=== PATIENT | male | born 1980 | race Caucasian/White ===

== ENCOUNTER 2020-04-13 11:26 | Outpatient (REF) | payer BC, SELFPAY ==
[2020-04-13 20:35] LABS: Calculated LDL 141 mg/dL (<100); Cholesterol 206 mg/dL (<200); Glucose 91 mg/dL (74-106); HDL Cholesterol 50 mg/dL (40-60); Triglyceride 75 mg/dL (<150)
== END 2020-04-13 11:46 ==
LOC: NCHCN 11:26
PROVIDERS: PCP Nurse Practitioner Family; Visit Provider Nurse Practitioner Family
DX: Z77.011 Contact with and (suspected) exposure to lead (principal); Z00.00 Encounter for general adult medical examination without abnormal findings; Z13.1 Encounter for screening for diabetes mellitus; Z13.220 Encounter for screening for lipoid disorders
CPT/HCPCS: 80061; 82947; 83655

== ENCOUNTER 2020-04-16 11:35 | Outpatient (CLI) | payer BC, SELFPAY ==
--- NOTE | 2020-04-13 10:44 | DI.RAD_ITS ---
EXAM: XR CHEST 2V PA LATERAL CLINICAL HISTORY: CHEST PAIN LT R07.89 TECHNIQUE: 2D digital imaging was performed. COMPARISON: No exams were available for comparison FINDINGS: MEDIASTINUM: Normal. HEART: Normal. PULMONARY VASCULATURE: Normal. LUNGS: Clear. PLEURAL SPACE: No pleural effusion or pneumothorax. BONE:Normal. OTHER FINDINGS:Normal. IMPRESSION: No acute pulmonary findings. DATA REPOSITORY: RADIATION DOSE DELIVERED:
== END 2020-04-16 11:55 ==
PROVIDERS: PCP Nurse Practitioner Family; Visit Provider Nurse Practitioner Family
DX: R07.89 Other chest pain (principal)
CPT/HCPCS: 71046

== ENCOUNTER 2020-05-07 00:28 | Outpatient (CLI) | payer BC, SELFPAY ==
--- NOTE | 2020-05-07 | DI.US_ITS ---
APPROVED REPORT EXAM: Comprehensive 2D, Doppler, and color-flow Echocardiogram Patient Location: Out-Patient Dairy Scientist: Ngoc Mahoney RDCS (AE) Indications: MVP Other Information Study Quality: Good Conclusion Left ventricular chamber size and wall thickness. Estimated ejection fraction is 60 to 65%. There a re no segmental wall motion abnormalities. Normal diastolic function There is no chamber enlargement There are no structural valvular abnormalities. No mitral valve prolapse is seen There is trace physiologic mitral and tricuspid regurgitation Wall motion Left Ventricle The left ventricle is normal size. The left ventricular systolic function is normal. The left ventric ular ejection fraction is within the normal range. There is normal left ventricular wall thickness. T here is normal LV segmental wall motion. The left ventricular diastolic function is normal. There is no ventricular septal defect visualized. LVEF is 60-65%. Right Ventricle The right ventricle is normal size. The right ventricular systolic function is normal. The RVSP is 15 .6mmHg. Atria The left atrium size is normal. The right atrium size is normal. The interatrial septum is intact wit h no evidence for an atrial septal defect. Aortic Valve The aortic valve is normal in structure. Aortic valve is trileaflet. There is no aortic valvular sten osis. No aortic regurgitation is present. Mitral Valve The mitral valve is normal in structure. No evidence of mitral valve stenosis. Trace mitral regurgita tion. There is no evidence of mitral valve prolapse. Tricuspid Valve The tricuspid valve is normal in structure. There is no tricuspid valve stenosis. Trace tricuspid reg urgitation. Pulmonic Valve The pulmonary valve is normal in structure. There is no pulmonic valvular stenosis. There is no pulmo janelle valvular regurgitation. Great Vessels The aortic root is normal in size. The ascending aorta is normal in size. IVC is normal in size and c ollapses >50% with inspiration. Pericardium There is no pericardial effusion. There is no pleural effusion. 2D Dimensions IVSD d PLAX 0.92 cm M: 0.6-1.2 LV Vol A2C d MOD 126.0 mL LVPW d PLAX 0.93 cm M: 0.6 - 1.2 LV Vol A4C d MOD 114.0 mL LVID d PLAX 4.67 cm M: 4.2 - 5.8 LA vol/ BSA A2C s A-L 31.1 mL/m2 LVDs 2.95 cm M: 2.5 - 4.0 LA vol/ BSA A4C s A-L 27.1 mL/m2 Ao Root d 3.06 cm M: 3.1 - 3.7 LA Vol/ BSA Biplane s A-L 29.2 mL/m2 RA Area A4C 14.30 cm2 LA Area A4C s MOD 18.33 cm2 RA Vol/ BSA A4C s A-L 19.8 mL/m2 LA Area A2C s MOD 19.54 cm2 Ao Asc Diam d 3.14 cm M: 2.6 - 3.4 LV EF A4C MOD 64.1 % LV EF Teichholz 65.5 % LV EF A2C MOD 63.1 % LVEF (Frazier's) 62.98 % M: 52 - 72 LV EF Biplane MOD 63.0 % LV Volume 90.92 mL M: 62 - 150 SV 75.68 mL LV Volume Index 46.86 mL/m2 M: 34 - 74 SV Index 38.85 mL/m2 LV Vol Biplane MOD 120.2 mL FS 35.90 % M-Mode TAPSE 2.13 cm (M/F) >1.7 LV Diastology MV E' medial 0.090 (>0.07 m/s) E/A Ratio 1.6 LV E/e MED 8.05 (<14) MV E Vmax 0.73 (0.4-1.3 m/s) MV E' lateral 0.117 (>0.1 m/s) MV A Vmax 0.45 (0.4-1.3 m/s) LV E/e LAT 6.20 (<14) MV E/A Ratio 1.51 MV E/E' medial 8.07 MV E/E' lateral 6.22 Aortic Valve LVOT Area 3.40 cm2 AoV Area Vmax 3.14 cm2 LVOT Vmax 1.11 m/s AoV Area/ BSA (Vmax) 1.61 cm2/m2 LVOT Mean Shashi. 0.67 m/s ARNAUD Mean Shashi. 2.63 cm2 LVOT Peak Grad 5.0 mmHg ARNAUD Mean Shashi. Index 1.35 cm2/m2 LVOT Mean Grad 2.2 mmHg LVOT VTI 0.256 m LVOT Diam s 2.05 cm AoV Vmax 1.21 m/s Velocity Ratio 0.91 AoV Mean Shashi. 0.87 m/s AoV Peak Grad 5.8 mmHg LVOT SV 87.05 mL AoV Mean Grad 3.3 mmHg AoV VTI 0.273 m AoV Area VTI 3.19 cm2 AoV Area/ BSA (VTI) 1.64 cm/m2 Mitral Valve MV DT 174 (160-240 msec) MV PHT 50 msec MV Area PHT 4.36 cm2 Pulmonary Valve PV Vmax 0.94 (0.5-1.5 m/s) RVOT Peak Gr. 1.18 mmHg PV Peak Grad 3.5 mmHg RVOT Mean Gr. 0.75 mmHg PV Mean Grad 2.0 mmHg RVOT VTI 0.133 m PV VTI 0.197 m RVOT Vmax 0.54 m/s Tricuspid Valve TR Peak Grad 12.5 mmHg TR Vmax 1.77 m/s RA Pressure 3.00 mmHg RVSP (TR) 15.6 mmHg
== END 2020-05-07 00:48 ==
PROVIDERS: PCP Nurse Practitioner Family; Visit Provider Nurse Practitioner Family
DX: I34.1 Nonrheumatic mitral (valve) prolapse (principal); I36.1 Nonrheumatic tricuspid (valve) insufficiency; R07.89 Other chest pain
CPT/HCPCS: 93306

== ENCOUNTER 2020-05-22 15:13 | Outpatient (REF) | payer BC, SELFPAY ==
--- NOTE | 2020-05-22 13:45 | SKI_PTH ---
PATIENT: Kirk Gunter LOC: [facility] U#:[id number] AGE/SX: 39/M ROOM: RE05/22/[address]: Christie Fajardo : 1980 BED: DIS: 05/22/2020 SPEC #: [id number] RECD: 05/23/20 12:42 STATUS: KIRSTIE ADHIKARI #: [id number] ADAN: 05/22/20 13:[address]: Christie Fajardo DEPT: Surgical Specimen RECD BY: Corina Izaguirre Tissues: 1 - SKIN BIOPSY(SHAVE/PUNCH) Procedures: SKIN LEVEL 4 Comments: [id number]
== END 2020-05-22 15:33 ==
LOC: NCHCN 15:13
PROVIDERS: PCP Nurse Practitioner Family; Visit Provider Nurse Practitioner Family
DX: D23.5 Other benign neoplasm of skin of trunk (principal)
CPT/HCPCS: 88305

== ENCOUNTER 2020-07-31 12:29 | Outpatient (REF) | payer BC, SELFPAY ==
[2020-08-03 13:41] LABS: Patient Race White; SARS-CoV-2 RNA Undetected (Undetected); SARS-CoV-2 Specimen Source Nasopharynx
== END 2020-07-31 12:49 ==
LOC: NCHCN 12:29
PROVIDERS: PCP Nurse Practitioner Family; Visit Provider Nurse Practitioner Family
DX: Z11.59 Encounter for screening for other viral diseases (principal)
CPT/HCPCS: U0003

== ENCOUNTER 2021-07-18 08:19 | Outpatient (REF) | payer BC, SELFPAY ==
[2021-07-19 12:12] LABS: COVID-19 RT-PCR UVMMC Result Negative (Negative)
== END 2021-07-18 08:20 | disposition home or self-care (01) ==
LOC: NCHCN 08:19
PROVIDERS: PCP Nurse Practitioner Family; Visit Provider Physician Assistant Medical
DX: Z20.822 Contact with and (suspected) exposure to COVID-19 (principal)
CPT/HCPCS: U0003

== ENCOUNTER 2021-11-19 19:30 | Emergency (ER) | payer BC, SELFPAY ==
[2021-11-19 19:36] VITALS: BP 148/109; PULSE 85; RESP 16; TEMP 36.4; O2SAT 97
[2021-11-19] MEDS: Simethicone/Sod Bicarb/Cit Ac, 4 gram PACKET 1 PACKET PO (19:51)
[2021-11-19 19:58] VITALS: BP 132/93; PULSE 84; O2SAT 98
[2021-11-19 20:09] LABS: Source Nasopharynx
[2021-11-19] MEDS: Glucagon 1 MG VIAL IVP (20:09)
--- NOTE | 2021-11-19 20:10 | ED.GENADUL_ITS ---
Discharge Plan Disposition Patient Disposition: HOME Condition: Stable Discharge Details Chief Complaint: ThroatFB Clinical Impression: Impacted foreign body in esophagus Primary Care Provider: Christie Fajardo ED Provider: Jono Romo Home Meds and New Rx's Prescriptions: No Action No Known Home Meds RF: 0 Discharge Instructions Additional Instructions: drinking carbonated beverages can help when this happens follow up with your primary care provider within 1-2 weeks if you feel more ill, have worsening pain or can't tolerate liquids return to the emergency department Medical Decision Making 41 yo male who denies chronic medical problems comes in with feeling like chicken is stuck in his throat. He states he was eating previously frozen boneless chicken that was tough to chew, swallowed it and felt it get lodged in his throat, points to negrete apple area when he is asked where it feels stuck. Denies dyspnea, and has never had this before. HE also notes a week ago he tested positive for covid, is fully vaccinated and was tested for work protocol and never had symptoms. He is unable to swallow liquids without spitting it back up, will try effervescent and also glucagon and reasess. pt feeling better and is now able to drink liquids, remains covid positive but stable vitals. Given he can now tolerate po do not feel emergent endoscopy indicated. He is stable for discharge and advised to follow up with pcp and return precautions given Differential Diagnosis Differential Diagnosis: food impaction, gerd Lab Data Lab results reviewed: Yes I reviewed the patient's lab results. HPI General Mode of arrival: ambulatory . Date/Time Provider Initiated Documentation: 11/19/21 19:54 . Limitations to Documentation: no limitations . Information obtained by: patient . History of Present Illness 41 year old M presents to the emergency department with the chief complaint of feels chicken stuck in his throat, described as moderate, Patient started experiencing this hour(s) (3) and it has been constant. No relieving factors improve symptom(s), No exacerbating factors reported . Patient notes no other symptoms.. Patient did receive the following treatments prior to arrival, none Related Data Home Medications Medication Instructions Recorded Confirmed Unknown [No Known Home Meds] 11/19/21 11/19/21 Allergies Allergy/AdvReac Type Severity Reaction Status Date / Time No Known Allergies Allergy Unverified 11/19/21 19:40 General Stated Complaint: ThroatFB PANCHITO: 2 Review of Systems All systems reviewed & are unremarkable except as noted in HPI and below Constitutional Constitutional: Denies chills, Denies fever(s) and Denies weakness Cardiovascular Cardiovascular: Denies chest pain and Denies dyspnea Respiratory Respiratory: Denies cough and Denies dyspnea Gastrointestinal Gastrointestinal: Denies abdominal pain, Denies nausea and Denies vomiting Musculoskeletal Musculoskeletal: Denies joint swelling Neurologic Neurologic: Denies weakness PFSH All Active Problems (Updated 11/19/21 @ 21:35 by Jono Romo MD) Impacted foreign body in esophagus (Acute) Medical History (Updated 11/19/21 @ 21:35 by Jono Romo MD) COVID-19 Social History Smoking/Tobacco Use Status: Former Tobacco Use Smoking risk assessment performed?: Yes Alcohol Intake: current Alcohol Intake frequency: holidays/special occasions only Drug use: Occasionally Substance use type: marijuana Do you feel safe at home: Yes Do you feel safe in your relationship?: Yes Exam Const General: well developed Orientation: alert HENMT Head: normal to inspection Ears: external ears normal General nose exam: external nose normal Mouth: moist mucous membranes Eyes General: appearance normal, both eyes and all related structures Neck Neck: normal visual inspection Resp Effort & Inspection: normal respiratory effort and able to speak in complete sentences Cardio Rate: regular rate Skin General skin exam: no rashes or lesions noted Neuro General: patient alert and patient oriented x3 Extrem General: normal to inspection Psych Mental Status: mental status grossly normal Course Vital Signs Vital signs: Vital Signs Temperature 36.4 C L 11/19/21 19:36 Pulse 85 11/19/21 19:36 Respiratory Rate 16 11/19/21 19:36 Blood Pressure 148/109 H 11/19/21 19:36 Pulse Oximetry 97 11/19/21 19:36 Temperature 36.4 C L 11/19/21 19:36 Pulse 84 11/19/21 19:58 Respiratory Rate 16 11/19/21 19:36 Respiratory Effort Non-Labored 11/19/21 19:59 Respiratory Pattern Normal 11/19/21 19:59 Blood Pressure 132/93 H 11/19/21 19:58 Pulse Oximetry 98 11/19/21 19:58 Pain Level 6 11/19/21 19:36 Lab/Test Results Lab/Test Results: Laboratory Tests Range/Units 11/19/21 20:04 COVID-19 Source Nasopharynx
[2021-11-19 21:02] LABS: Influenza A PCR Negative (Negative); Influenza B PCR Negative (Negative); RSV PCR Negative (Negative)
[2021-11-19 21:20] LABS: COVID-19 PCR POSITIVE (Negative)
[2021-11-19 21:40] VITALS: BP 135/99; PULSE 84; RESP 18; O2SAT 98
[2021-11-19] MEDS: Ondansetron 4 MG/2 ML VIAL IVP (22:02)
== END 2021-11-19 23:23 | disposition home or self-care (01) ==
PROVIDERS: Emergency Provider Emergency Medicine; PCP Nurse Practitioner Family
DX: T18.128A Food in esophagus causing other injury, initial encounter (principal); X58.XXXA Exposure to other specified factors, initial encounter; U07.1 COVID-19
CPT/HCPCS: 87637; 96374; 96375; 99284; 99283; J1610; J2405

== ENCOUNTER 2021-12-03 17:23 | Outpatient (REF) | payer BC, SELFPAY ==
[2021-12-03 14:26] LABS: Calculated LDL 134 mg/dL (<100); Cholesterol 202 mg/dL (<200); Glucose 90 mg/dL (74-106); HDL Cholesterol 54 mg/dL (40-60); Triglyceride 71 mg/dL (<150)
== END 2021-12-03 17:24 | disposition home or self-care (01) ==
LOC: NCHCN 17:23
PROVIDERS: PCP Nurse Practitioner Family; Visit Provider Nurse Practitioner Family
DX: Z00.00 Encounter for general adult medical examination without abnormal findings (principal)
CPT/HCPCS: 80061; 82947

== ENCOUNTER 2021-12-10 01:04 | Outpatient (CLI) | payer BC, SELFPAY ==
--- NOTE | 2021-12-10 10:15 | DI.RAD_ITS ---
Exam(s) XR CHEST 2V PA LATERAL EXAM: XR CHEST 2V PA LATERAL CLINICAL HISTORY: H/O COVID-19 INFECTION, U07.1, 1-MO AGO, NO NEW SYMPTOMS TECHNIQUE: 2D digital imaging was performed of the chest. Three images were obtained. PA and later al views were obtained. COMPARISON: CR XR CHEST 2V PA LATERAL from 04/13/2020 FINDINGS: MEDIASTINUM: Normal. HEART: Normal. PULMONARY VASCULATURE: Normal. LUNGS: Clear. PLEURAL SPACE: No pleural effusion or pneumothorax. BONE:Within normal limits for the patient's age. OTHER FINDINGS:Normal. IMPRESSION: No acute pulmonary findings. DATA REPOSITORY: RADIATION DOSE DELIVERED:
== END 2021-12-10 01:24 ==
PROVIDERS: PCP Nurse Practitioner Family; Visit Provider Nurse Practitioner Family
DX: Z86.16 Personal history of COVID-19 (principal)
CPT/HCPCS: 71046

== ENCOUNTER 2025-02-24 16:31 | Emergency (ER) | payer OTHER, SELFPAY ==
[2025-02-24] VITALS (17 sets, daily range): BP systolic 103–158; BP diastolic 78–101; PULSE 58–72; RESP 10–19; TEMP 36.7; O2SAT 98–100
--- NOTE | 2025-02-24 16:30 | RT.EKG_ITS ---
APPROVED REPORT Exam: Resting ECG Reason for Exam: ches pain Patient Location: E HR:66 bpm ECG Measurements Heart Rate 66 AXIS NV 164 P 50 QRSd 84 QRS 50 QT 386 T 57 QTc 406 Conclusion Sinus rhythm...normal P axis, V-rate 60- 99 Probable left atrial enlargement...P >50mS, <-0.10mV V1 Sinus Rhythm. No prior. WD
--- NOTE | 2025-02-24 17:12 | W.ED.GENAD ---
Discharge Plan Disposition Patient Disposition: Home Condition: Stable Discharge Details Clinical Impression: Chest pain of uncertain etiology Primary Care Provider: Xiomara,Local ED Provider: Dmitry Chambers Home Meds and New Rx's Prescriptions: No Action multivitamin Tablet 1 tab PO DAILY Discharge Instructions Instructions: Chest Pain, Adult ED Additional Instructions: You were seen in the emergency department for your intermittent chest pain for 6 to 7 days, your cardiac workup is negative, your EKG shows no acute abnormality, I ruled out a blood clot in the lungs and there is no abnormality seen on your chest x-ray, no evidence of infection seen on your blood work. 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 HPI Narrative: 44 year-old male presents to ED today by EMS with a chief complaint of intermittent chest pain for the past 6-7 days, recently got back from vacation and was exerting himself a lot. Quality described as generalized chest heaviness, no radiation to shortness of breath, diaphoresis, syncope, nausea/vomiting, visual changes, fever, cough. Severity is described as moderate. Palliating factors include nothing specific attempted. Provoking factors include nothing specific. Events leading up to the incident/Associated Symptoms: Patient denies history of AK. Patient not anticoagulated. Related Data Home Medications ?Medication ?Instructions ?Recorded ?Confirmed multivitamin 1 tab PO DAILY 12/17/21 02/24/25 Allergies Allergy/AdvReac Type Severity Reaction Status Date / Time No Known Allergies Allergy Unverified 02/24/25 16:43 General Stated Complaint: Chest Pain PANCHITO: 2 Review of Systems All systems reviewed & are unremarkable except as noted in HPI and below Exam Narrative Exam Narrative: GENERAL APPEARANCE: Well-nourished, non-toxic, awake and alert, atraumatic, no acute distress. SKIN: Warm, pink, dry, intact, without rashes/lesions/ulcerations. HEAD: Normocephalic, atraumatic, normal hair distribution for gender/age. EYES: Normal conjunctiva, no exudates on lids/lashes. ENT: Nares patent, no circumoral cyanosis, no facial swelling NECK: Supple, trachea midline, painless cervical ROM. LUNGS/CHEST: Lungs CTA bilaterally, non-labored respirations, normal A/P diameter, symmetrical expansion, no chest wall deformity HEART (CV/PV): Regular rate and rhythm without murmur, no peripheral edema, no JVD. ABDOMEN: Soft, non-distended, no guarding. MSK: Normal ROM, no swelling/deformity to bilateral UEs or LEs, moving all extremities without weakness, no cyanosis, spine midline without tenderness, normal curvature. NEURO: Mental Status AAOx4 - alert to person, place, time, events No facial droop, no forehead involvement. Motor: No focal weakness - strength 5/5 in bilateral UEs and LEs, proximal and distal, symmetric. Sensory: sensation intact to light touch globally. Gait normal: patient ambulated without ataxia into ED room. PSYCH: euthymic, cooperative, pleasant, appropriate speech Course Vital Signs Vital signs: Vital Signs Temperature 36.7 C 02/24/25 16:32 Pulse 72 02/24/25 16:32 Respiratory Rate 10 L 02/24/25 16:32 Blood Pressure 133/95 H 02/24/25 16:32 Pulse Oximetry 100 02/24/25 16:32 Temperature 36.7 C 02/24/25 16:32 Temperature Source Oral 02/24/25 16:32 Pulse 72 02/24/25 16:32 Respiratory Rate 10 L 02/24/25 16:32 Blood Pressure 133/95 H 02/24/25 16:32 Blood Pressure Position Sitting 02/24/25 16:32 Pulse Oximetry 100 02/24/25 16:32 Oxygen Delivery Method Room Air 02/24/25 16:32 Oxygen Flow Rate 0 02/24/25 16:32 Pain Level 0 02/24/25 16:32 Medical Decision Making This dictation utilizes [id number] dictation software and may contain unedited grammatical errors. 44 year-old male presents to ED today by EMS with a chief complaint of intermittent chest pain for the past 6-7 days, recently got back from vacation and was exerting himself a lot. Quality described as generalized chest heaviness, no radiation to shortness of breath, diaphoresis, syncope, nausea/vomiting, visual changes, fever, cough. Severity is described as moderate. Palliating factors include nothing specific attempted. Provoking factors include nothing specific. Events leading up to the incident/Associated Symptoms: Patient denies history of AK. Patients' medical history: Atrial fibrillation, Lyme disease, mitral valve prolapse, psoriasis. Family and social history: Denies heavy EtOH use, denies illicit substance use. Pertinent exam findings / vital signs include benign cardiopulmonary exam, no tenderness to ribs, benign abdomen, neuro intact, nontoxic and afebrile. Differential / pathologies of concern include ACS, costochondritis, pleurisy, indigestion, PE Diagnostic studies of: - CBC, CMP, D-dimer, troponin, EKG, chest x-ray. - CBC benign without any acute abnormality - CMP shows no actionable abnormality - Troponin negative with reliable onset - D-dimer negative - Chest x-ray benign - EKG shows sinus rhythm at 66 bpm with P waves phobia narrow complex QRS, normal axis, good R wave progression, no ST or T wave abnormalities, normal QTc Interventions of: -None. ED Course/Assessment/Plan: 44-year-old male with history of A-fib and ablation as well as eosinophilic esophagitis noted later in the visit presents with chest pain for 6 to 7 days, his workup is completely negative heart score is low, he gets his primary care in the [facility], I counseled him on following up with cardiology when he returns, strict return criteria to an emergency department for further episodes of chest pain especially with shortness of breath, dizziness and other emergent concerns. Findings not consistent with ACS, pneumonia, PE, pneumothorax. Disposition of Chest Pain of Uncertain Etiology. Patient verbalized understanding of the plan and return to ED criteria and engaged in shared decision making. Medical Records Medical records reviewed: Yes I reviewed the patient's medical records. Imaging Data Radiologic Study: Attestation: I personally reviewed and interpreted this imaging study as follows: Imaging: X-Ray Radiologist's impression: EXAM: XR CHEST 1V IN DI DEPT CLINICAL HISTORY: chest pain TECHNIQUE: 2D digital imaging was performed of the chest. One image was obtained. PA was obtained. COMPARISON: CR XR CHEST 2V PA LATERAL from 04/13/2020 CR XR CHEST 2V PA LATERAL from 12/10/2021 FINDINGS: MEDIASTINUM: Normal. HEART: Normal. PULMONARY VASCULATURE: Normal. LUNGS: Clear. PLEURAL SPACE: No pleural effusion or pneumothorax. BONE:Within normal limits for the patient's age. OTHER FINDINGS:Normal. IMPRESSION: No acute pulmonary findings. Lab Data Lab results reviewed: Yes I reviewed the patient's lab results. Labs: Laboratory Tests Range/Units 02/24/25 02/24/25 17:07 19:56 WBC (4.4-10.8) 10^3/uL 6.18 RBC (4.36-5.78) 10^6/uL 5.33 Hgb (13.5-17.5) g/dL 15.1 Hct (40.0-50.0) % 45.4 MCV (80-95) fL 85 MCH (27.0-33.0) pg 28.3 MCHC (32.0-36.0) % 33.3 RDW (11.8-14.1) % 13.2 Plt Count (130-400) 10^3/uL 190 MPV (8.0-11.0) fL 10.8 Immature Gran % % 0.5 Neutrophils % % 50.7 Lymphocytes % % 29.8 Monocytes % % 12.3 Eosinophils % % 6.1 Basophils % % 0.6 Nucleated RBC % (0.0-0.3) % 0.0 Absolute Neutrophils (1.2-6.7) 10^3/uL 3.13 Absolute Lymphocytes (1.2-3.4) 10^3/uL 1.84 Absolute Monocytes (0.1-0.8) 10^3/uL 0.76 Absolute Eosinophils (0.0-0.7) 10^3/uL 0.38 Absolute Basophils (0.0-0.2) 10^3/uL 0.04 D-Dimer (<500) ng/mlFEU 180 Sodium (136-145) mmol/L 143 Potassium (3.5-5.1) mmol/L 3.7 Chloride (98-107) mmol/L 106 Carbon Dioxide (21.0-32.0) mmol/L 27.4 Anion Gap (3-11) mmol/L 9.6 BUN (7-18) mg/dL 16 Creatinine (0.70-1.30) mg/dL 1.1 Est GFR (CKD-EPI 2020) (mL/min/1.73m2) 84.37 Glucose (74-106) mg/dL 88 Calcium (8.5-10.1) mg/dL 9.6 Total Bilirubin (0.2-1.0) mg/dL 0.4 AST (15-37) U/L 32 ALT (16-63) U/L 65 H Alkaline Phosphatase (46-116) U/L 78 Troponin I (<or=76) ng/L 5 Cancelled Total Protein (6.4-8.2) g/dL 7.6 Albumin (3.4-5.0) g/dL 4.2 Quality:SDOH Health Related Social Needs: No Data to Display PFSH All Active Problems (Updated 02/24/25 @ 18:12 by SIM Castano) Chest pain of uncertain etiology (Acute) Dysphagia (Acute) Medical History COVID-19 Lead exposure Lyme disease Mitral valve prolapse Paresthesia Psoriasis Social History Smoking/Tobacco Use Status: Former Tobacco Use Smoking risk assessment performed?: Yes Alcohol Intake: current Alcohol Intake frequency: holidays/special occasions only Drug use: Occasionally Substance use type: marijuana Current gender identity: male Do you feel safe at home: Yes Do you feel safe in your relationship?: Yes
[2025-02-24 17:16] LABS: Abs Immature Grans 0.03 10^3/uL (0.0-0.06); Absolute Basophil Count 0.04 10^3/uL (0.0-0.2); Absolute Eosinophil Count 0.38 10^3/uL (0.0-0.7); Absolute Lymphocyte Count 1.84 10^3/uL (1.2-3.4); Absolute Monocyte Count 0.76 10^3/uL (0.1-0.8); Absolute Neutrophil Count 3.13 10^3/uL (1.2-6.7); Basophils % 0.6 %; Eosinophils % 6.1 %; HCT 45.4 % (40.0-50.0); HGB 15.1 g/dL (13.5-17.5); Immature Grans % 0.5 %; Lymphocytes % 29.8 %; MCH 28.3 pg (27.0-33.0); MCHC 33.3 % (32.0-36.0); MCV 85 fL (80-95); MPV 10.8 fL (8.0-11.0); Monocytes % 12.3 %; Neutrophils % 50.7 %; Platelet Count 190 10^3/uL (130-400); RBC 5.33 10^6/uL (4.36-5.78); RDW 13.2 % (11.8-14.1); RDW-SD 41.4 fL; WBC 6.18 10^3/uL (4.4-10.8)
--- NOTE | 2025-02-24 17:25 | DI.RAD_ITS ---
Exam(s) XR CHEST 1V IN DI DEPT EXAM: XR CHEST 1V IN DI DEPT CLINICAL HISTORY: chest pain TECHNIQUE: 2D digital imaging was performed of the chest. One image was obtained. PA was obtained. COMPARISON: CR XR CHEST 2V PA LATERAL from 04/13/2020 CR XR CHEST 2V PA LATERAL from 12/10/2021 FINDINGS: MEDIASTINUM: Normal. HEART: Normal. PULMONARY VASCULATURE: Normal. LUNGS: Clear. PLEURAL SPACE: No pleural effusion or pneumothorax. BONE:Within normal limits for the patient's age. OTHER FINDINGS:Normal. IMPRESSION: No acute pulmonary findings. DATA REPOSITORY: RADIATION DOSE DELIVERED:
[2025-02-24 17:40] LABS: ALT 65 U/L (16-63); AST 32 U/L (15-37); Albumin 4.2 g/dL (3.4-5.0); Alkaline Phosphatase 78 U/L (46-116); Anion Gap 9.6 mmol/L (3-11); BUN 16 mg/dL (7-18); Bilirubin, Total 0.4 mg/dL (0.2-1.0); CO2 27.4 mmol/L (21.0-32.0); CREATININE 1.1 mg/dL (0.70-1.30); Calcium 9.6 mg/dL (8.5-10.1); Chloride 106 mmol/L (98-107); Estimated GFR 84.37 (mL/min/1.73m2); Glucose 88 mg/dL (74-106); Potassium 3.7 mmol/L (3.5-5.1); Sodium 143 mmol/L (136-145); Total Protein 7.6 g/dL (6.4-8.2); Troponin I 5 ng/L (<or=76)
[2025-02-24 17:50] LABS: D-Dimer 180 ng/mlFEU (<500)
[2025-02-24 18:37] LABS: Troponin I 4 ng/L (<or=76)
[2025-02-27 12:18] LABS: Lyme Ab w Rflx to Lyme Confirm Positive (Negative)
[2025-02-27 14:54] LABS: Lyme IgG Ab Negative (Negative); Lyme IgM Ab Negative (Negative)
[2025-02-28 15:08] LABS: Anaplasma phagocytophilum Negative (Negative); B. miyamotoi PCR Negative (Negative); Babesia divergens/MO-1 Negative (Negative); Babesia duncani Negative (Negative); Babesia microti Negative (Negative); Ehrlichia chaffeensis Negative (Negative); Ehrlichia ewingii/canis Negative (Negative); Ehrlichia muris eauclairensis Negative (Negative)
== END 2025-02-24 18:49 | disposition home or self-care (01) ==
PROVIDERS: Emergency Medicine Emergency Medical Services; Emergency Provider Physician Assistant
DX: R07.9 Chest pain, unspecified (principal); Z87.891 Personal history of nicotine dependence
CPT/HCPCS: 36415; 80053; 86617; 87798; 93005; 99285; 71045; 84484; 85025; 85379; 86618; 93010; 99284

== ENCOUNTER 2025-09-30 17:47 | Outpatient (REF) | payer BC, SELFPAY | END 2025-09-30 17:48 | disposition home or self-care (01) | LOC: LBN 17:47 | PROVIDERS: Visit Provider Physician Assistant | DX: I89.1 Lymphangitis (principal) | CPT/HCPCS: 87077; 87070; 87205 ==